=== PATIENT | male | born 1945 | race Caucasian/White ===

== ENCOUNTER 2018-09-23 19:36 | Emergency (ER) | payer OTHER, MEDICARE ==
[2018-09-23] MEDS ORDERED: Morphine 2 MG/ML Syringe ONE (20:15)
[2018-09-23] MEDS ORDERED: Morphine 2 MG/ML Syringe IVPUSH ONE (21:38)
[2018-09-23] MEDS ORDERED: Sodium Chloride 0.9% 1,000 ML IV SCH (21:45)
[2018-09-23] MEDS ORDERED: cefTRIAXone 1 GM in Sodium Chloride 0.9% 50 ML IV ONE (22:44)
--- NOTE | 2018-09-23 22:50 | EDM.PDOC ---
ED HPI GENERAL MEDICAL PROBLEM - General Chief Complaint: Neuro Symptoms/Deficits Stated Complaint: Speech Difficulty Time Seen by Provider: 09/23/18 20:50 Source of Information: Reports: Patient, Family History Limitations: Reports: Altered Mental Status, Other (Delirium) - History of Present Illness INITIAL COMMENTS - FREE TEXT/NARRATIVE: This is a 73yo M who was noted to have slurred speech and weakness at noon today. His symptoms worsened through the day. His family brought him to the ER for concerns of a stroke. He also has severe back pain in the mid to low back area and per family the chiropractor wanted imaging. Patient has difficulty with transfer from vehicle to wheelchair and even to the stretcher. Per family his baseline is independent walking and fluent speech. He could not tell the year or the president which per family is unlike their family member. Onset: Today Duration: Hour(s):, Getting Worse Location: Reports: Generalized Severity: Severe Improves with: Reports: None Worsens with: Reports: None Associated Symptoms: Reports: Confusion, Fever/Chills, Headaches, Nausea/ Vomiting, Weakness - Related Data Allergies Allergy/AdvReac Type Severity Reaction Status Date / Time No Known Allergies Allergy Verified 09/23/18 23:55 Home Meds: Home Meds Budesonide/Formoterol [Symbicort 160-4.5 Mcg Inhaler] 10.2 gm IH ASDIRECTED [History] Lisinopril 40 mg PO DAILY 09/23/18 [History] azaTHIOprine [Azathioprine] 50 mg PO DAILY 09/23/18 [History] Past Medical History HEENT History: Reports: Hard of Hearing, Impaired Vision Cardiovascular History: Reports: Hypertension Respiratory History: Reports: COPD Gastrointestinal History: Reports: Bowel Obstruction, Chronic Diarrhea, Inflammatory Bowel Disease, Irritable Bowel Syndrome Genitourinary History: Reports: Renal Calculus Other Genitourinary History: Kidney stones Musculoskeletal History: Reports: Arthritis, Back Pain, Chronic, Neck Pain, Chronic Neurological History: Reports: Headaches, Chronic - Infectious Disease History Infectious Disease History: Reports: Chicken Pox, Measles, Mumps - Past Surgical History HEENT Surgical History: Reports: Cataract Surgery, Eye Surgery, Laser Surgery Social & Family History - Family History Family Medical History: Noncontributory - Caffeine Use Caffeine Use: Reports: Coffee ED ROS GENERAL - Review of Systems Review Of Systems: ROS reveals no pertinent complaints other than HPI. ED EXAM, NEURO - Physical Exam Exam: See Below Exam Limited By: Other (difficulty with memory) General Appearance: Obtunded Eye Exam: Bilateral Eye: EOMI (sluggish), PERRL Ears: Normal External Exam Nose: Normal Inspection Throat/Mouth: Normal Inspection Head Exam: Atraumatic, Normocephalic Neck: Normal Inspection, Supple, Non-Tender Respiratory/Chest: No Respiratory Distress, Lungs Clear, Normal Breath Sounds Cardiovascular: Normal Peripheral Pulses, Regular Rate, Rhythm GI/Abdominal: Normal Bowel Sounds, Soft, Non-Tender Neurological: Abnormal Gait, Ataxia, Difficulty Walking. No: Oriented x 3 Back Exam: Paraspinal Tenderness, Vertebral Tenderness Extremities: Normal Inspection, Normal Range of Motion Skin Exam: Warm, Dry, Intact Course - Orders/Labs/Meds Labs: Laboratory Tests 09/23/18 09/23/18 09/23/18 Range/Units 20:50 20:50 20:50 WBC 14.6 H (4.0-11.0) K/uL RBC 5.03 (4.50-6.50) M/uL Hgb 16.0 (13.0-18.0) g/dL Hct 45.5 (40.0-54.0) % MCV 91 (76-96) fL MCH 31.8 (27.0-32.0) pg MCHC 35.2 H (31.0-35.0) g/dL RDW 13.8 (11.0-16.0) % Plt Count 158 D (150-400) K/uL MPV 9.1 (6.0-10.0) fL Neut % (Auto) 95.7 H (45.0-70.0) % Lymph % (Auto) 1.3 L (20.0-40.0) % [place] % (Auto) 2.8 L (3.0-10.0) % Eos % (Auto) 0.1 L (1.0-5.0) % Baso % (Auto) 0.1 (0.0-0.5) % Neut # (Auto) 13.95 H (2.00-7.50) K/uL Lymph # (Auto) 0.19 L (1.50-4.00) K/uL [place] # (Auto) 0.41 (0.20-0.80) K/uL Eos # (Auto) 0.01 L (0.04-0.40) K/uL Baso # (Auto) 0.01 L (0.02-0.10) K/uL Sodium 137 (136-145) mmol/L Potassium 5.0 D (3.5-5.1) mmol/L Chloride 99 (98-107) mmol/L Carbon Dioxide 25.3 (21.0-32.0) mmol/L Anion Gap 17.7 H (5.0-15.0) mmol/L BUN 22 D (8-26) mg/dL Creatinine 1.89 H D (0.70-1.30) mg/dL Est Cr Clr Drug Dosing TNP Estimated GFR (MDRD) 35 L (>60) MLS/MIN BUN/Creatinine Ratio 11.6 (6-25) Glucose 127 H (74-100) mg/dL Calcium 9.0 (8.5-10.1) mg/dL Total Bilirubin 1.4 H D (0.0-1.0) mg/dL AST 111 H (15-37) U/L ALT 98 H (12-78) U/L Alkaline Phosphatase 102 (46-116) U/L Troponin I < 0.017 (0.000-0.060) ng/mL B-Natriuretic Peptide (0-125) pg/mL Total Protein 7.7 (6.4-8.2) g/dL Albumin 3.5 (3.4-5.0) g/dL Globulin 4.2 (2.2-4.2) g/dL Albumin/Globulin Ratio 0.8 (0.8-2.0) TSH, Ultra Sensitive 0.367 (0.358-3.740) uIU/mL Urine Color Urine Appearance (CLEAR) Urine pH (5.0-8.0) Ur Specific [place] (1.003-1.030) Urine Protein (NEGATIVE) mg/dL Urine Glucose (UA) (NEGATIVE) mg/dL Urine Ketones (NEGATIVE) mg/dL Urine Occult Blood (NEGATIVE) Urine Nitrite (NEGATIVE) Urine Bilirubin (NEGATIVE) Urine Urobilinogen (0.2-1.0) E.U./dL Ur Leukocyte Esterase (NEGATIVE) Urine RBC /HPF Urine WBC /HPF Urine WBC Clumps /HPF Ur Squamous Epith Cells /HPF Urine Bacteria /HPF 09/23/18 09/23/18 Range/Units 20:50 21:38 WBC (4.0-11.0) K/uL RBC (4.50-6.50) M/uL Hgb (13.0-18.0) g/dL Hct (40.0-54.0) % MCV (76-96) fL MCH (27.0-32.0) pg MCHC (31.0-35.0) g/dL RDW (11.0-16.0) % Plt Count (150-400) K/uL MPV (6.0-10.0) fL Neut % (Auto) (45.0-70.0) % Lymph % (Auto) (20.0-40.0) % [place] % (Auto) (3.0-10.0) % Eos % (Auto) (1.0-5.0) % Baso % (Auto) (0.0-0.5) % Neut # (Auto) (2.00-7.50) K/uL Lymph # (Auto) (1.50-4.00) K/uL [place] # (Auto) (0.20-0.80) K/uL Eos # (Auto) (0.04-0.40) K/uL Baso # (Auto) (0.02-0.10) K/uL Sodium (136-145) mmol/L Potassium (3.5-5.1) mmol/L Chloride (98-107) mmol/L Carbon Dioxide (21.0-32.0) mmol/L Anion Gap (5.0-15.0) mmol/L BUN (8-26) mg/dL Creatinine (0.70-1.30) mg/dL Est Cr Clr Drug Dosing Estimated GFR (MDRD) (>60) MLS/MIN BUN/Creatinine Ratio (6-25) Glucose (74-100) mg/dL Calcium (8.5-10.1) mg/dL Total Bilirubin (0.0-1.0) mg/dL AST (15-37) U/L ALT (12-78) U/L Alkaline Phosphatase (46-116) U/L Troponin I (0.000-0.060) ng/mL B-Natriuretic Peptide 695 H (0-125) pg/mL Total Protein (6.4-8.2) g/dL Albumin (3.4-5.0) g/dL Globulin (2.2-4.2) g/dL Albumin/Globulin Ratio (0.8-2.0) TSH, Ultra Sensitive (0.358-3.740) uIU/mL Urine Color Other Urine Appearance Clear (CLEAR) Urine pH 5.5 (5.0-8.0) Ur Specific [place] 1.025 (1.003-1.030) Urine Protein >=300 H (NEGATIVE) mg/dL Urine Glucose (UA) Negative (NEGATIVE) mg/dL Urine Ketones Trace H (NEGATIVE) mg/dL Urine Occult Blood Moderate H (NEGATIVE) Urine Nitrite Negative (NEGATIVE) Urine Bilirubin Small H (NEGATIVE) Urine Urobilinogen 0.2 (0.2-1.0) E.U./dL Ur Leukocyte Esterase Negative (NEGATIVE) Urine RBC 0-5 H /HPF Urine WBC 10-20 H /HPF Urine WBC Clumps Moderate /HPF Ur Squamous Epith Cells Few /HPF Urine Bacteria Occasional /HPF Meds: Medications Discontinued Medications Generic Name Dose Route Start Last Admin Trade Name Freq PRN Reason Stop Dose Admin Sodium Chloride 1,000 mls @ 250 mls/hr 09/23/18 21:45 09/23/18 22:40 Normal Saline IV 250 mls/hr ASDIRECTED FAUSTINA Administration Ceftriaxone Sodium 1 gm/ 50 mls @ 200 mls/hr 09/23/18 22:44 09/23/18 22:42 Sodium Chloride IV 09/23/18 22:58 200 mls/hr ONETIME ONE Administration Morphine Sulfate 2 mg 09/23/18 21:38 09/23/18 21:40 Morphine IVPUSH 09/23/18 21:39 2 mg ONETIME ONE Administration Morphine Sulfate 2 mg 09/23/18 20:15 Morphine .ROUTE 09/23/18 20:16 .STK-MED ONE Departure - Departure Time of Disposition: 22:50 Disposition: DC/Tfer to Acute Hospital 02 Condition: Undetermined Clinical Impression: Delirium, Generalized weakness Elevated WBC count Qualifiers: Leukocytosis type: unspecified Qualified Code(s): D72.829 - Elevated white blood cell count, unspecified - Discharge Information Referrals: PCP,None [Primary Care Provider] - Forms: ED Department Discharge - Problem List & Annotations (1) Delirium SNOMED Code(s): 2107177 Code(s): R41.0 - DISORIENTATION, UNSPECIFIED Status: Acute Priority: High (2) Elevated WBC count SNOMED Code(s): 550577823, 402246105 Code(s): D72.829 - ELEVATED WHITE BLOOD CELL COUNT, UNSPECIFIED Status: Acute Priority: High Qualifiers: Leukocytosis type: unspecified Qualified Code(s): D72.829 - Elevated white blood cell count, unspecified (3) Generalized weakness SNOMED Code(s): 88456998 Code(s): R53.1 - WEAKNESS Status: Acute Priority: Medium (4) Hydronephrosis with renal calculous obstruction SNOMED Code(s): 16508462, 92279699, 85722174, 86596223, 520317788 Code(s): N13.2 - HYDRONEPHROSIS WITH RENAL AND URETERAL CALCULOUS OBSTRUCTION Status: Acute Priority: Medium (5) Delirium SNOMED Code(s): 2368716 Code(s): R41.0 - DISORIENTATION, UNSPECIFIED Status: Acute - Problem List Review Problem List Initiated/Reviewed/Updated: Yes - Assessment/Plan Plan: Consulted [facility]. Discussed case with Dr. Ramesh. They do not have Neurology at the [facility] and it would be in the best interests of the patient to go to the nearest Neurology capably facility which is [facility]. Patient counseled and family counseled and they agree with plan of care. Patient to be transferred to [facility] ER for further management and workup due to acute delirium and confusion with generalized weakness and slurred speech. Patient transferred BLS in stable condition. Patient did appear slightly more alert prior to discharge with EMS. He continued to have difficulty with the date but able to recall the current president but the time of discharge.
--- NOTE | 2018-09-24 11:43 | CT ---
Date of Service: 09/23/18 Clinical Data: difficulty with speech UNENHANCED BRAIN CT: Multislice acquisition through the brain without IV contrast was performed. No masses or mass effect. No intracranial hemorrhage. No evidence of acute or subacute infarct. No osseous abnormalities. IMPRESSION: No acute intracranial abnormalities. [id number] [facility]
--- NOTE | 2018-09-24 11:49 | CT ---
Date of Service: 09/23/18 Clinical Data: back pain, THORACIC SPINE CT: Multislice axial acquisition was performed. Axial images and sagittal and coronal reformations are reviewed. There is diffuse osteopenia. There is slight compression deformity of the superior endplate of T2, age indeterminate. There is also mild compression deformity of T8, T10, T11, and T12, age indeterminate. There are Schmorl's nodes within the vertebral body endplates at multiple levels. No focal lytic or blastic bone lesions. There is mild degenerative disk disease at multiple levels. No significant central or foraminal stenosis. No other significant findings. [id number] [facility]
--- NOTE | 2018-09-24 11:55 | CT ---
Date of Service: 09/23/18 Clinical Data: back pain with leg weakness LUMBAR SPINE CT: Multislice axial acquisition was performed. Axial images and sagittal and coronal reformations are reviewed. There is mild compression of the deformity of the superior endplate of L1, age indeterminate. The remaining lumbar vertebrae are of average height and in good alignment. No focal lytic or blastic bone lesions. There is degenerative disk disease throughout the lumbar spine. There is mild- to-moderate neural foramen stenosis bilaterally at multiple levels. No significant central stenosis. There are bilateral nonobstructing renal calculi. No other significant findings. [id number] [facility]
== END 2018-09-23 23:05 ==
LOC: LB.ED 19:36
DX: R41.0 Disorientation, unspecified (principal); D72.829 Elevated white blood cell count, unspecified; R53.1 Weakness; R47.81 Slurred speech; I10 Essential (primary) hypertension; M19.90 Unspecified osteoarthritis, unspecified site; Z79.899 Other long term (current) drug therapy; Z98.49 Cataract extraction status, unspecified eye
CPT/HCPCS: 36415; 70450; 72128; 72131; 80053; 81001; 83880; 84443; 84484; 85025; 87040; 87086; 87088; 87804; 93005; 96361; 96374; 96375; 99285; 99285-25; A0425; A0429; J0696; J2270; J7030; J7050